=== PATIENT | male | born 1990 | race Caucasian/White ===

== ENCOUNTER → 2020-10-31 | Outpatient (CLI) | payer OTHER ==
[~2020-10-31] MED LIST: ASPI-611 PO; CEFT2VIA13 IV; CHOL500050 PO; DAPT500V2 IVP; iohexol 300mg/ml 100ml inj. ONE
== END | disposition home or self-care (01) ==
LOC: EDSTATUS 08:00 → WOUND CARE 08:04
PROVIDERS: ATTEND Nurse Practitioner
DX: T81.89XA Other complications of procedures, not elsewhere classified, initial encounter (principal); L97.312 Non-pressure chronic ulcer of right ankle with fat layer exposed; M86.60 Other chronic osteomyelitis, unspecified site; Y92.238 Other place in hospital as the place of occurrence of the external cause; Y83.8 Other surgical procedures as the cause of abnormal reaction of the patient, or of later complication, without mention of misadventure at the time of the procedure
CPT/HCPCS: 73701; G0463; Q9967

== ENCOUNTER 2022-08-15 12:51 | Emergency (ER) | payer BC, OTHER ==
[~2022-08-15 12:51] MED LIST changes: -CEFT2VIA13 IV; +DAPT500V18 IVP; -DAPT500V2 IVP; -iohexol 300mg/ml 100ml inj. ONE
== END 2022-08-15 13:09 | disposition left against medical advice (07) ==
LOC: ER 12:51
DX: M25.561 Pain in right knee (principal); Z53.21 Procedure and treatment not carried out due to patient leaving prior to being seen by health care provider